=== PATIENT | female | born 1960 | race Caucasian/White ===

== ENCOUNTER 2018-06-28 15:57 | Outpatient (CLI) | payer OTHER | END 2018-06-28 15:58 | disposition home or self-care (01) | LOC: BICMAMMO 15:57 | PROVIDERS: ATTEND Obstetrics & Gynecology | DX: Z12.31 Encounter for screening mammogram for malignant neoplasm of breast (principal); R92.1 Mammographic calcification found on diagnostic imaging of breast | CPT/HCPCS: 77063; 77067 ==

== ENCOUNTER 2018-08-23 12:39 | Outpatient (CLI) | payer OTHER ==
--- NOTE | 2018-08-23 14:10 | RAD ---
TWO VIEWS LEFT HIP: Date: 08-23-18 Comparison: None. History: Hip pain while walking. FINDINGS: There is no displaced fracture or evidence of dislocation. There is mild superior joint space narrowi ng and mild lateral acetabular osteophyte formation. IMPRESSION: No acute findings. POS: [facility]
--- NOTE | 2018-08-23 14:17 | RAD ---
FRONTAL RADIOGRAPH PELVIS: Date: 08-23-18 Comparison: None. History: Hip pain while walking. FINDINGS: There is mild superior joint space narrowing bilateral hips. Femoral heads project normally over thei r respective acetabulum. The pelvic ring is intact. There is no widening of the sacroiliac joints or pubic symphysis. No fracture. IMPRESSION: No acute osseous abnormality. POS: [facility]
--- NOTE | 2018-08-23 14:19 | RAD ---
TWO VIEWS RIGHT HIP: Date: 08-23-18 Comparison: None. History: Hip pain while walking. FINDINGS: There is no fracture or evidence of dislocation. Mild superior joint space narrowing and mild lateral acetabular osteophyte formation. IMPRESSION: No acute findings. POS: [facility]
== END 2018-08-23 12:40 | disposition home or self-care (01) ==
LOC: BICRAD 12:39
PROVIDERS: ATTEND Internal Medicine Rheumatology
DX: M25.551 Pain in right hip (principal); M25.552 Pain in left hip
CPT/HCPCS: 72170

== ENCOUNTER 2019-07-04 08:00 | Outpatient (CLI) | payer OTHER ==
--- NOTE | 2019-07-04 08:38 | MMO ---
Bilateral MAMMO Bilat Screen [facility]. CLINICAL HISTORY: Patient is 58 years old and is seen for screening. The patient has no family history of breast cancer. The patient has no personal history of cancer. VIEWS: The views performed were: bilateral craniocaudal with tomosynthesis and bilateral mediolateral oblique with tomosynthesis. FILMS COMPARED: The present examination has been compared to a prior imaging study performed at [facility] on 06/28/2018. This study has been interpreted with the assistance of computer-aided detection. MAMMOGRAM FINDINGS: There are scattered fibroglandular densities. There are stable benign appearing calcifications seen in both breasts. There are no suspicious masses, calcifications or areas of architectural distortion. There are no suspicious masses, suspicious calcifications, or new areas of architectural distortion. IMPRESSION: THERE IS NO MAMMOGRAPHIC EVIDENCE OF MALIGNANCY. A ROUTINE FOLLOW-UP MAMMOGRAM IN 1 YEAR IS RECOMMENDED. THE RESULTS OF THIS EXAM WERE SENT TO THE PATIENT. ACR BI-RADS Category 2 - Benign finding MAMMOGRAPHY NOTE: 1. A negative mammogram report should not delay a biopsy if a dominant of clinically suspicious mass is present. 2. Approximately 10% to 15% of breast cancers are not detected by mammography. 3. Adenosis and dense breasts may obscure an underlying neoplasm. Reported by: ALEX TOMAS MD Electonically Signed: [id number]
== END 2019-07-04 08:01 | disposition home or self-care (01) ==
LOC: BICMAMMO 08:00
PROVIDERS: ATTEND Obstetrics & Gynecology
DX: Z12.31 Encounter for screening mammogram for malignant neoplasm of breast (principal)
CPT/HCPCS: 77063; 77067

== ENCOUNTER 2019-09-02 07:43 | Outpatient (CLI) | payer OTHER ==
--- NOTE | 2019-09-02 09:12 | BD ---
DEXA BONE EXAM: COMPARISON: None. HISTORY: A 59-year-old postmenopausal female for screening. FINDINGS: Lumbar Spine: BMD (g/cm2) L1 0.784 T-Score: -1.9 L2 0.803 T-Score: -2.0 L3 0.853 T-Score: -2.1 L4 0.853 T-Score: -1.9 L1-L4 0.827 T-Score: -2.0 Left Femoral Neck: 0.587 T-Score: -2.4 Total Femur: 0.663 T-Score: -2.3 Right Femoral Neck: 0.628 T-Score: -2.0 Total Femur: 0.683 T-Score: -2.1 Impression: Osteopenia. This patient has a 10-year WHO fracture risk of a major osteoporotic fracture of 18% and of a hip fracture of 3.1%. POS: [facility]
== END 2019-09-02 07:44 | disposition home or self-care (01) ==
LOC: BICMAMMO 07:43
PROVIDERS: ATTEND Internal Medicine Rheumatology
DX: M81.0 Age-related osteoporosis without current pathological fracture (principal); M85.80 Other specified disorders of bone density and structure, unspecified site
CPT/HCPCS: 77080

== ENCOUNTER 2019-09-23 14:14 | Outpatient (CLI) | payer OTHER ==
--- NOTE | 2019-09-23 15:05 | RAD ---
THORACIC SPINE THREE VIEWS: HISTORY: Osteoporosis. FINDINGS: Thoracic vertebrae maintain normal height and alignment. No significant degenerative change. Disk spa maricel are preserved. No lytic or blastic process. IMPRESSION: Unremarkable thoracic spine. POS: [facility]
== END 2019-09-23 14:15 | disposition home or self-care (01) ==
LOC: BICRAD 14:14
PROVIDERS: ATTEND Internal Medicine Rheumatology
DX: M81.0 Age-related osteoporosis without current pathological fracture (principal)
CPT/HCPCS: 72070

== ENCOUNTER 2020-02-20 08:41 | Outpatient (CLI) | payer OTHER ==
--- NOTE | 2020-02-20 08:57 | RAD ---
Right foot 3 views HISTORY: Right foot pain. FINDINGS: Mild joint space narrowing of the interphalangeal joints. Mild osteophytosis throughout the hindfoot and midfoot. Os cuboid noted. Soft tissue prominence over the medial aspect of the foot at the level of the fifth metatarsal head. No acute fracture, dislocation, or aggressive osseous erosions. IMPRESSION : Mild osteoarthritic changes. No acute osseous abnormalities are demonstrated.
== END 2020-02-20 08:42 | disposition home or self-care (01) ==
LOC: BICRAD 08:41
PROVIDERS: ATTEND Internal Medicine Rheumatology
DX: M79.671 Pain in right foot (principal); M19.071 Primary osteoarthritis, right ankle and foot

== ENCOUNTER 2020-07-06 10:52 | Outpatient (CLI) | payer OTHER ==
--- NOTE | 2020-07-06 11:20 | MMO ---
Bilateral MAMMO Bilat Screen [facility]. CLINICAL HISTORY: Patient is 59 years old and is seen for screening. The patient has no family history of breast cancer. The patient has no personal history of cancer. VIEWS: The views performed were: bilateral craniocaudal with tomosynthesis and bilateral mediolateral oblique with tomosynthesis. FILMS COMPARED: The present examination has been compared to prior imaging studies performed at [facility] on 06/28/2018 and 07/04/2019. This study has been interpreted with the assistance of computer-aided detection. MAMMOGRAM FINDINGS: There are scattered fibroglandular densities. There are benign appearing calcifications seen in both breasts. There are no suspicious masses, suspicious calcifications, or new areas of architectural distortion. IMPRESSION: THERE IS NO MAMMOGRAPHIC EVIDENCE OF MALIGNANCY. A ROUTINE FOLLOW-UP MAMMOGRAM IN 1 YEAR IS RECOMMENDED. THE RESULTS OF THIS EXAM WERE SENT TO THE PATIENT. ACR BI-RADS Category 2 - Benign finding MAMMOGRAPHY NOTE: 1. A negative mammogram report should not delay a biopsy if a dominant of clinically suspicious mass is present. 2. Approximately 10% to 15% of breast cancers are not detected by mammography. 3. Adenosis and dense breasts may obscure an underlying neoplasm. Reported by: DUNG MONTERROSO MD Electonically Signed: [id number]
== END 2020-07-06 10:53 | disposition home or self-care (01) ==
LOC: BICMAMMO 10:52
PROVIDERS: ATTEND Obstetrics & Gynecology
DX: Z12.31 Encounter for screening mammogram for malignant neoplasm of breast (principal)
CPT/HCPCS: 77063; 77067

== ENCOUNTER 2020-09-07 08:19 | Outpatient (CLI) | payer OTHER ==
--- NOTE | 2020-09-07 08:48 | BD ---
EXAM: DEXA bone density examination HISTORY: 60-year-old postmenopausal female for screening COMPARISON: 09/02/2019 FINDINGS: L1--bone mineral density 0.814 g/sq cm; T score -1.6 L2--bone mineral density 0.893 g/sq cm; T score -1.2 L3--bone mineral density 0.903 g/sq cm; T score -1.6 L4--bone mineral density 0.898 g/sq cm; T score -1.5 Total L1-L4--bone mineral density 0.880 g/sq cm; T score -1.5 Right femoral neck--bone mineral density0.596; T score -2.3 Total proximal right femur--bone mineral density 0.709; T score -1.9 Left femoral neck--bone mineral density0.609; T score -2.2 Total proximal left femur--bone mineral density 0.679; T score -2.2 IMPRESSION: Osteopenia. This patient has a 10 year WHO fracture risk of a major osteoporotic fracture of 18% and of a hip fracture of 2.8%.
== END 2020-09-07 08:20 | disposition home or self-care (01) ==
LOC: BICMAMMO 08:19
PROVIDERS: ATTEND Internal Medicine Rheumatology
DX: M81.0 Age-related osteoporosis without current pathological fracture (principal); M85.89 Other specified disorders of bone density and structure, multiple sites
CPT/HCPCS: 77080

== ENCOUNTER 2021-04-15 14:07 | Outpatient (CLI) | payer OTHER | END 2021-04-15 14:08 | disposition home or self-care (01) | LOC: BICRAD 14:07 | PROVIDERS: ATTEND Internal Medicine Rheumatology | DX: R06.02 Shortness of breath (principal) | CPT/HCPCS: 71046 ==

== ENCOUNTER 2021-08-09 08:19 | Outpatient (CLI) | payer OTHER | END 2021-08-09 08:20 | disposition home or self-care (01) | LOC: BICMAMMO 08:19 | PROVIDERS: ATTEND Obstetrics & Gynecology | DX: Z12.31 Encounter for screening mammogram for malignant neoplasm of breast (principal) | CPT/HCPCS: 77063; 77067 ==

== ENCOUNTER 2021-09-20 07:56 | Outpatient (CLI) | payer BC, OTHER | END 2021-09-20 07:57 | disposition home or self-care (01) | LOC: BICMAMMO 07:56 | PROVIDERS: ATTEND Internal Medicine Rheumatology | DX: M81.0 Age-related osteoporosis without current pathological fracture (principal); M85.89 Other specified disorders of bone density and structure, multiple sites | CPT/HCPCS: 77080 ==

== ENCOUNTER 2022-12-23 12:38 | Outpatient (CLI) | payer BC | END 2022-12-23 12:39 | disposition home or self-care (01) | LOC: RAD 12:38 | PROVIDERS: ATTEND Internal Medicine Rheumatology | DX: M17.12 Unilateral primary osteoarthritis, left knee (principal) ==

== ENCOUNTER 2023-08-24 12:44 | Outpatient (CLI) | payer BC | END 2023-08-24 12:45 | disposition home or self-care (01) | LOC: BICMAMMO 12:44 | PROVIDERS: ATTEND Obstetrics & Gynecology | DX: Z12.31 Encounter for screening mammogram for malignant neoplasm of breast (principal) | CPT/HCPCS: 77063; 77067 ==

== ENCOUNTER 2024-08-25 13:51 | Outpatient (CLI) | payer OTHER | END 2024-08-25 13:52 | disposition home or self-care (01) | LOC: BICMAMMO 13:51 | PROVIDERS: ATTEND Obstetrics & Gynecology | DX: Z12.31 Encounter for screening mammogram for malignant neoplasm of breast (principal) | CPT/HCPCS: 77063; 77067 ==

== ENCOUNTER 2025-09-01 14:59 | Outpatient (CLI) | payer MEDICARE | END 2025-09-01 15:00 | disposition home or self-care (01) | LOC: BICMAMMO 14:59 | PROVIDERS: ATTEND Obstetrics & Gynecology | DX: Z12.31 Encounter for screening mammogram for malignant neoplasm of breast (principal) | CPT/HCPCS: 77063; 77067 ==

== ENCOUNTER 2025-09-11 10:25 | Outpatient (CLI) | payer MEDICARE | END 2025-09-11 10:26 | disposition home or self-care (01) | LOC: BICMAMMO 10:25 | PROVIDERS: ATTEND Physician Assistant | DX: M81.0 Age-related osteoporosis without current pathological fracture (principal); M85.89 Other specified disorders of bone density and structure, multiple sites | CPT/HCPCS: 77080 ==